=== PATIENT | male | born 1955 | race Caucasian/White ===

== ENCOUNTER 2023-07-21 18:37 | Emergency (ER) | payer MEDICARE, OTHER ==
[~2023-07-21] VITALS: Ht 182.8 cm; Wt 108.8 kg
[2023-07-21 19:02] LABS: BASOPHILS # (AUTO) 0.1 10^3/uL (0.0-0.1); BASOPHILS % (AUTO) 1 % (0-10); EOSINOPHILS # (AUTO) 0.5 10^3/uL (0.0-0.3); EOSINOPHILS % (AUTO) 6 % (0-10); HEMATOCRIT 41 % (40-54); HEMOGLOBIN 12.2 g/dL (13.3-17.7); LYMPHOCYTES # (AUTO) 1.8 10^3/uL (1.0-4.0); LYMPHOCYTES % (AUTO) 23 % (12-44); MEAN CORPUSCULAR HEMOGLOBIN 28 pg (25-34); MEAN CORPUSCULAR HGB CONC 30 g/dL (32-36); MEAN CORPUSCULAR VOLUME 92 fL (80-99); MEAN PLATELET VOLUME 8.7 fL (9.0-12.2); MONOCYTES # (AUTO) 0.5 10^3/uL (0.0-1.0); MONOCYTES % (AUTO) 6 % (0-12); NEUTROPHILS # (AUTO) 4.9 10^3/uL (1.8-7.8); NEUTROPHILS % (AUTO) 63 % (42-75); PLATELET COUNT 307 10^3/uL (130-400); WHITE BLOOD COUNT 7.8 10^3/uL (4.3-11.0)
--- NOTE | 2023-07-21 19:08 | Diagnostic Imaging Report ---
INDICATION: Shortness of breath, intermittent left-sided numbness. COMPARISONS: None FINDINGS: Single view of the chest shows normal heart, pulmonary vasculature, pleura and diaphragms with no focal opacities. There is a previous median sternotomy for a CABG. There is slight tortuosity of the thoracic aorta. Soft tissues and bony thorax are unremarkable. IMPRESSION: No acute cardiopulmonary changes. Dictated by: Dictated on workstation # [id number]
--- NOTE | 2023-07-21 19:11 | ED General ---
General Chief Complaint: Neurological Problems Stated Complaint: L HAND NUMBNESS Nursing Triage Note: Patient came in via EMS for complaints of numbness in the left arm and left leg. Patient has no history of stroke. Patient reports that onset was 2 days ago. Source of Information: Patient, EMS History of Present Illness Date Seen by Provider: Jul 21, 2023 Time Seen by Provider: 18:35 Initial Comments 68-year-old male presenting by EMS from home with complaints of left arm and leg numbness that has been going on for at least 2 days up to a week. He states that he is supposed to go to the [facility] tomorrow for a checkup after having right knee surgery. He gets his care through the [facility]. He does have a history of coronary artery disease with prior bypass and takes Plavix chronically. He denies having any pain currently other than in the right knee and leg where he had the knee surgery. He has been going to physical therapy and did do that today. He could not tell me when he might of last had a fall. On exam on arrival to the ED he is denying left sided numbness or weakness. He states that he has had a headache for the last 3 days. Associated Systoms: No Chest Pain, No Cough, No Diaphoresis, No Fever/Chills; Headaches; No Loss of Appetite, No Malaise, No Nausea/Vomiting, No Rash, No Seizure, No Shortness of Air, No Syncope, No Weakness Allergies and Home Medications Allergies Coded Allergies: No Known Drug Allergies (Unverified , 07/21/23) Patient Home Medication List Home Medication List Reviewed: Yes Review of Systems Review of Systems Constitutional: No chills, No dizziness, No fever EENTM: No vision loss, No epistaxis Respiratory: No cough, No short of breath Cardiovascular: No chest pain Gastrointestinal: No nausea, No vomiting Genitourinary: No dysuria Musculoskeletal: see HPI Skin: no symptoms reported Psychiatric/Neurological: Headache, Numbness (Remittent left-sided numbness for the anywhere from 2 days to a week) Past Drfzewz-Gleqtt-Jhsgov Hx Patient Social History Tobacco Use?: No Smoking Status: Former Smoker Substance use?: No Alcohol Use?: No Pt feels they are or have been: No Past Medical History Surgery/Hospitalization HX: Dementia, coronary artery disease, CABG, stent, hypertension Physical Exam Vital Signs Vital Signs - First Documented 07/21/23 18:37 Temp 36.8 Pulse 82 Resp 16 B/P (MAP) 128/71 (90) Pulse Ox 98 O2 Delivery Room Air Capillary Refill : Less Than 3 Seconds Height, Weight, BMI Height: '" Weight: lbs. oz. kg; 32.00 BMI Method: General Appearance: No Apparent Distress, WD/WN HEENT: PERRL/EOMI, Pharynx Normal Neck: Full Range of Motion, Normal Inspection, Non Tender, Supple Respiratory: Chest Non Tender, Lungs Clear, Normal Breath Sounds, No Accessory Muscle Use, No Respiratory Distress Cardiovascular: Regular Rate, Rhythm, Normal Peripheral Pulses Gastrointestinal: Normal Bowel Sounds, No Pulsatile Mass, Non Tender, Soft Rectal: Deferred Extremity: Normal Capillary Refill, Normal Inspection, Normal Range of Motion, No Calf Tenderness, Pedal Edema (Trace bilateral pedal edema), Other (Tenderness to the right knee where he had recent surgery) Neurologic/Psychiatric: Alert, Oriented x3, No Motor/Sensory Deficits, Normal 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, 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 Norm as Tested Skin: Normal Color, Warm/Dry, Other (Superficial skin tear to the left elbow) Progress/Results/Core Measures Suspected Sepsis SIRS Temperature: Pulse: 82 Respiratory Rate: 16 Laboratory Tests 07/21/23 18:45: White Blood Count 7.8 Blood Pressure 128 /71 Mean: 90 Laboratory Tests 07/21/23 18:45: Creatinine 1.15, INR Comment 0.9, Platelet Count 307, Total Bilirubin 0.6 Results/Orders Lab Results Laboratory Tests Test 07/21/23 18:45 07/21/23 18:53 07/21/23 19:43 Range/Units White Blood Count 7.8 4.3-11.0 10^3/uL Red Blood Count 4.40 4.30-5.52 10^6/uL Hemoglobin 12.2 L 13.3-17.7 g/dL Hematocrit 41 40-54 % Mean Corpuscular Volume 92 80-99 fL Mean Corpuscular Hemoglobin 28 25-34 pg Mean Corpuscular Hemoglobin Concent 30 L 32-36 g/dL Red Cell Distribution Width 15.4 H 10.0-14.5 % Platelet Count 307 130-400 10^3/uL Mean Platelet Volume 8.7 L 9.0-12.2 fL Immature Granulocyte % (Auto) 1 % Neutrophils (%) (Auto) 63 42-75 % Lymphocytes (%) (Auto) 23 12-44 % Monocytes (%) (Auto) 6 0-12 % Eosinophils (%) (Auto) 6 0-10 % Basophils (%) (Auto) 1 0-10 % Neutrophils # (Auto) 4.9 1.8-7.8 10^3/uL Lymphocytes # (Auto) 1.8 1.0-4.0 10^3/uL Monocytes # (Auto) 0.5 0.0-1.0 10^3/uL Eosinophils # (Auto) 0.5 H 0.0-0.3 10^3/uL Basophils # (Auto) 0.1 0.0-0.1 10^3/uL Immature Granulocyte # (Auto) 0.0 0.0-0.1 10^3/uL Prothrombin Time 12.9 12.2-14.7 SEC INR Comment 0.9 0.8-1.4 Activated Partial Thromboplast Time 27 24-35 SEC D-Dimer 2.94 H 0.00-0.49 UG/ML Sodium Level 138 135-145 MMOL/L Potassium Level 4.5 3.6-5.0 MMOL/L Chloride Level 99 98-107 MMOL/L Carbon Dioxide Level 21 21-32 MMOL/L Anion Gap 18 H 5-14 MMOL/L Blood Urea Nitrogen 16 7-18 MG/DL Creatinine 1.15 0.60-1.30 MG/DL Estimat Glomerular Filtration Rate 69 BUN/Creatinine Ratio 14 Glucose Level 145 H 70-105 MG/DL Calcium Level 8.5 8.5-10.1 MG/DL Corrected Calcium 8.7 8.5-10.1 MG/DL Total Bilirubin 0.6 0.1-1.0 MG/DL Aspartate Amino Transf (AST/SGOT) 16 5-34 U/L Alanine Aminotransferase (ALT/SGPT) 16 0-55 U/L Alkaline Phosphatase 130 40-136 U/L Troponin I < 0.30 <0.30 NG/ML Total Protein 6.6 6.4-8.2 GM/DL Albumin 3.7 3.2-4.5 GM/DL Serum Alcohol < 10 <10 MG/DL Glucometer 143 H 70-110 MG/DL Urine Color YELLOW Urine Clarity CLEAR Urine pH 6.5 5-9 Urine Specific [place] 1.015 L 1.016-1.022 Urine Protein NEGATIVE NEGATIVE Urine Glucose (UA) 3+ H NEGATIVE Urine Ketones NEGATIVE NEGATIVE Urine Nitrite NEGATIVE NEGATIVE Urine Bilirubin NEGATIVE NEGATIVE Urine Urobilinogen 2.0 < = 1.0 MG/DL Urine Leukocyte Esterase NEGATIVE NEGATIVE Urine RBC (Auto) NEGATIVE NEGATIVE Urine RBC RARE /HPF Urine WBC RARE /HPF Urine Squamous Epithelial Cells RARE /HPF Urine Crystals NONE /LPF Urine Bacteria NEGATIVE /HPF Urine Casts NONE /LPF Urine Mucus NEGATIVE /LPF Urine Culture Indicated NO My Orders Orders - SANAM HARMON MD Cbc And Automated Diff (07/21/23 18:51) Protime With Inr (07/21/23 18:51) Partial Thromboplastin Time (07/21/23 18:51) Comprehensive Metabolic Panel (07/21/23 18:51) Fibrin Degradation Products (07/21/23 18:51) Troponin I Fs (07/21/23 18:51) Ua Culture If Indicated (07/21/23 18:51) Chest 1 View Ap/Pa Only (07/21/23 18:51) Ekg Tracing (07/21/23 18:51) Nothing By Mouth (07/21/23 Dinner) Accucheck Stat ONCE (07/21/23 18:51) Ed Iv/Invasive Line Start (07/21/23 18:51) Vital Signs Stroke Patient Q15M (07/21/23 18:51) Ct Head Wo-R/O Stroke (07/21/23 18:51) O2 (07/21/23 18:51) Intake & Output 06,14,22 (07/21/23 18:51) Monitor-Rhythm Ecg Trace Only (07/21/23 18:51) Dysphagia Screening Tool Q10MX1 (07/21/23 18:51) Post Thrombolytic Adminstratio (07/21/23 18:51) Alcohol (07/21/23 18:51) Vital Signs/I&O 07/21/23 07/21/23 18:37 20:34 Temp 36.8 Pulse 82 84 Resp 16 18 B/P (MAP) 128/71 (90) 117/76 Pulse Ox 98 98 O2 Delivery Room Air Room Air Capillary Refill : Less Than 3 Seconds Blood Pressure Mean: 90 Point of Care Testing Finger Stick Blood Glucose: 143 Blood Glucose Action Taken: none Progress Note #1: Progress Note Potential diagnosis includes TIA, stroke, intracranial hemorrhage, electrolyte imbalance, acute coronary syndrome. Establish peripheral IV access and send labs for complete blood count, comprehensive metabolic profile, coagulation factors, troponin, urinalysis. Placed on cardiac quality assurance monitor chassis and my initial interpretation shows a sinus rhythm with a heart rate in the 80s. Electrocardiogram to look for signs of ischemia. CT scan of the head looking for acute pathology to account for his symptoms. 1 view chest x-ray looking for acute pathology in his chest. Patient's NIH stroke scale currently is a 0 as he was not having any weakness slurred speech or numbness on exam here. Progress Note #2: Time: 19:[address] scan of the head without IV contrast showed a acute on chronic subdural on t he right side that was 12 mm at its thickest spot and had a 7 mm right to left midline shift. His complete blood count did not show any acute abnormality. His comprehensive metabolic profile was also stable without acute significant abnormality to account for his symptoms. Call placed to transfer line and spoke with ADIA Nieto. I gave her the information on the patient and we clouded the images of the CT head further review. She will call back after she discusses the case with the physician. 1950 ADIA Nieto called back and stated that Dr. Victor M Cyr was the accepting provider for the patient to come to [facility]. Will call back with room assignment shortly. Helicopter ambulance is on the way to transport the patient. ECG Initial ECG Impression Date: Jul 21, 2023 Initial ECG Impression Time: 18:48 Initial ECG Rate: 83 Initial ECG Rhythm: Normal Sinus Initial ECG Comparisson: No Previous ECG Available Comment Initial interpretation and review his electrocardiogram shows a sinus rhythm with a heart rate of 83 bpm. DE interval [address] elevation. QT interval 364 ms with a QTc interval 403 ms. There is no prior tracing available for comparison. Diagnostic Imaging Diagonstic Imaging: Xray Plain Films/CT/US/NM/MRI: chest Comments [facility]. [place], [place] NAME: DONAL MARES [facility] REC#: [id number] PT STATUS: REG ER : 1955 PHYSICIAN: SANAM HARMON MD ADMIT DATE: 07/21/23/ER FS Signed Date of Exam:07/21/23 CHEST 1 VIEW AP/PA ONLY INDICATION: Shortness of breath, intermittent left-sided numbness. COMPARISONS: None FINDINGS: Single view of the chest shows normal heart, pulmonary vasculature, pleura and diaphragms with no focal opacities. There is a previous median sternotomy for a CABG. There is slight tortuosity of the thoracic aorta. Soft tissues and bony thorax are unremarkable. IMPRESSION: No acute cardiopulmonary changes. Dictated by: Dictated on workstation # [id number] Dict: 07/21/231902 Trans: 07/21/231911 [facility] [id number] Interpreted by: LEI COBOS MD Electronically signed by: LEI COBOS MD 07/21/231911 Reviewed: Reviewed by Me Diagonstic Imaging: CT Plain Films/CT/US/NM/MRI: head Comments NAME: DONAL MARES [facility] REC#: [id number] PT STATUS: REG ER : 1955 PHYSICIAN: SANAM HARMON MD ADMIT DATE: 07/21/23/ER FS Draft Date of Exam:07/21/23 CT HEAD WO-R/O STROKE PROCEDURE: CT head wo r/o stroke. TECHNIQUE: Multiple contiguous axial images were obtained through the brain without the use of intravenous contrast. Auto Exposure Controls were utilized during the CT exam to meet ALARA standards for radiation dose reduction. INDICATION: 68-year-old male with new onset left-sided numbness off-and-on for one week, slurred speech. COMPARISONS: None. FINDINGS: There are unfavorable findings with mixed density right-sided extraaxial blood products extending from frontal convexity to the parietal convexity from the skull base to vertex. Maximum thickness is 12 mm. There is 7 mm [id number] midline shift. There is no intra-axial mass, mass effect, hydrocephalus or hemorrhage. Santoro-white differentiation is maintained and there is no definite sulcal effacement. Basilar cisterns appear normal. Sinuses, orbits and mastoid air cells are unremarkable. This calcific atherosclerosis within the carotid siphons and visualized vertebral arteries. Sinuses, orbits and mastoid air cells are normal. Bone windows show no calvarial changes. IMPRESSION: Mixed density right-sided subdural hematoma extending from the frontal convexity to the parietal convexity and from skull base to vertex with a maximum thickness of 12 mm. There is an associated 7 mm right to left midline shift. In the appropriate clinical setting, the patient may benefit from a right middle meningeal artery embolization. Additional nonemergent findings, as described above. Dictated on workstation # [id number] Dict: 07/21/231912 Trans: 07/21/231919 [facility] [phone] Interpreted by: LEI COBOS MD Electronically signed by: Reviewed: Reviewed by Me Critical Care Note Critical Care Total Time (minutes) 45 minutes Progress I spent at least 45 minutes of critical care time with the patient. Time excludes separately billable procedures. Time was spent obtaining history from the patient and from EMS as independent historians, ordering test and reviewing results, ordering interventions and reviewing response, discussion with consultants, documentation in the chart. Patient was at risk of neurologic compromise and collapse with having the large subdural and midline shift. He required my immediate direct intervention and management to help stabilize his condition and arrange for transfer to a higher level of care. Departure Impression Primary Impression: Subdural hemorrhage Disposition: 30 STILL A PATIENT Condition: Critical Transfer Transfer Reason: Exceeds level of care (Needs Neurosurgery) Time Spoke to Accepting Phy: 19:[address] Victor M Cyr is accepting physician. I discussed the case with ADIA Nieto from the transfer center. She has not reached out to Dr. Nelson and he is excepting physician for the transfer. Helicopter ambulance is in route for transport in light of him having acute on chronic subdural hematoma and a 7 mm midline shift I felt that it was important to get him to higher level of care as quickly as possible. Transfer Facility: [facility] Method of Transfer: Air NIH Stroke Scale NIH Stroke Scale NIH : Select: Initial Level of Consciousness: 0=Alert Level of Consciousness-Questio: 0=Answers both month/age LOC Commands: 0=Performs both tasks Gaze: 0=Normal Visual Ross: 0=No visual loss Facial Movement (Facial Paresi: 0=Normal symmetrical mnt Motor Function-Arms Right: 0=No drift Motor Function-Arms Left: 0=No drift Motor Function-Legs Right: 0=No drift Motor Function-Legs Left: 0=No drift Limb Ataxia: 0=Absent Sensory: 0=Normal:no loss Best Language: 0=No aphasia Dysarthria: 0=Normal Extinction & Inattention: 0=No abnormality NIH Stroke Scale Score: 0 SANAM HARMON MD Jul 21, 2023 19:11
[2023-07-21 19:18] LABS: POTASSIUM 4.5 MMOL/L (3.6-5.0)
--- NOTE | 2023-07-21 19:21 | Diagnostic Imaging Report ---
PROCEDURE: CT head wo r/o stroke. TECHNIQUE: Multiple contiguous axial images were obtained through the brain without the use of intravenous contrast. Auto Exposure Controls were utilized during the CT exam to meet ALARA standards for radiation dose reduction. INDICATION: 68-year-old male with new onset left-sided numbness off-and-on for one week, slurred speech. COMPARISONS: None. FINDINGS: There are unfavorable findings with mixed density right-sided extraaxial blood products extending from frontal convexity to the parietal convexity from the skull base to vertex. Maximum thickness is 12 mm. There is 7 mm [id number] midline shift. There is no intra-axial mass, mass effect, hydrocephalus or hemorrhage. Santoro-white differentiation is maintained and there is no definite sulcal effacement. Basilar cisterns appear normal. Sinuses, orbits and mastoid air cells are unremarkable. This calcific atherosclerosis within the carotid siphons and visualized vertebral arteries. Sinuses, orbits and mastoid air cells are normal. Bone windows show no calvarial changes. IMPRESSION: Mixed density right-sided subdural hematoma extending from the frontal convexity to the parietal convexity and from skull base to vertex with a maximum thickness of 12 mm. There is an associated 7 mm right to left midline shift. In the appropriate clinical setting, the patient may benefit from a right middle meningeal artery embolization. Additional nonemergent findings, as described above. Dictated by: Dictated on workstation # [id number]
[2023-07-21 19:30] LABS: ALANINE AMINOTRANSFERASE 16 U/L (0-55); ALKALINE PHOSPHATASE 130 U/L (40-136); BILIRUBIN,TOTAL 0.6 MG/DL (0.1-1.0); BUN/CREATININE RATIO 14; CALCIUM 8.5 MG/DL (8.5-10.1); CARBON DIOXIDE 21 MMOL/L (21-32); CHLORIDE 99 MMOL/L (98-107); CREATININE SERUM 1.15 MG/DL (0.60-1.30); GFR ESTIMATED 69; GLUCOSE 145 MG/DL (70-105); SODIUM 138 MMOL/L (135-145)
[2023-07-21 19:31] LABS: ALBUMIN 3.7 GM/DL (3.2-4.5); TOTAL PROTEIN 6.6 GM/DL (6.4-8.2)
[2023-07-21 19:45] LABS: INR 0.9 (0.8-1.4); PROTHROMBIN TIME PATIENT 12.9 SEC (12.2-14.7)
[2023-07-21 19:46] LABS: FIBRIN DEGRADATION PRODUCTS 2.94 UG/ML (0.00-0.49)
[2023-07-21 19:57] LABS: BILIRUBIN,URINE NEGATIVE (NEGATIVE); CLARITY,URINE CLEAR; COLOR,URINE YELLOW; GLUCOSE, URINE (UA) 3+ (NEGATIVE); KETONES,URINE NEGATIVE (NEGATIVE); LEUKOCYTE ESTERASE ,URINE NEGATIVE (NEGATIVE); NITRITE,URINE NEGATIVE (NEGATIVE); PH,URINE 6.5 (5-9); PROTEIN,URINE NEGATIVE (NEGATIVE)
[2023-07-21 20:07] LABS: BACTERIA,URINE NEGATIVE /HPF; RBC,URINE RARE /HPF; SQUAMOUS EPITHELIAL CELL,UR RARE /HPF; WBC,URINE RARE /HPF
[2023-07-21 20:34] VITALS: BP 117/76
== END 2023-07-21 20:47 | disposition short-term general hospital (02) ==
LOC: EDUNIT# 18:37 → ER FS 18:37
DX: I62.00 Nontraumatic subdural hemorrhage, unspecified (principal); I10 Essential (primary) hypertension; R29.700 NIHSS score 0; Z79.02 Long term (current) use of antithrombotics/antiplatelets; Z87.891 Personal history of nicotine dependence; Z95.1 Presence of aortocoronary bypass graft
CPT/HCPCS: 36415; 70450; 71045; 80053; 80320; 81000; 82947; 84484; 85025; 85379; 85610; 85730; 93005; 93041